=== PATIENT | female | born 1985 | race Caucasian/White ===

== ENCOUNTER 2017-03-20 11:04 | Emergency (ER) | payer OTHER | END 2017-03-20 12:30 | disposition home or self-care (01) | LOC: CED 11:04 → CFTX 11:04 | DX: S81.811A Laceration without foreign body, right lower leg, initial encounter (principal); F17.210 Nicotine dependence, cigarettes, uncomplicated; Z23 Encounter for immunization; W54.0XXA Bitten by dog, initial encounter; Y92.410 Unspecified street and highway as the place of occurrence of the external cause | CPT/HCPCS: 12002; 90471; 90715; 99283 ==